=== PATIENT | male | born 1955 | race Caucasian/White ===

== ENCOUNTER → 2022-12-03 | Outpatient (CLI) | payer MEDICARE ==
--- NOTE | 2022-12-03 15:31 | US ---
EXAMINATION TYPE: US venous doppler duplex LE RT DATE OF EXAM: 12/03/2022 3:25 PM COMPARISON: NONE CLINICAL INDICATION: Male, 67 years old with history of I80.9 PHLEBITIS AND THROMBOPHLEBITIS OF U S80 .01XA M25.571; Knee and ankle injury 1 week ago. Pain. No hx of DVT. Patient does not take blood thin ners. SIDE PERFORMED: Right TECHNIQUE: The lower extremity deep venous system is examined utilizing real time linear array sonog darlin with graded compression, doppler sonography and color-flow sonography. VESSELS IMAGED: Common Femoral Vein Deep Femoral Vein Greater Saphenous Vein * Femoral Vein Popliteal Vein Small Saphenous Vein * Proximal Calf Veins (* superficial vessels) Right Leg: No evidence of DVT. Anechoic fluid-appearing area seen within the right medial knee: 2.5 x 1.7 x 0.4 cm. IMPRESSION: No ultrasound evidence for acute DVT in the right lower extremity. Small thin-walled fluid collection noted towards end of study medial knee level, possibly resolving d eep subcutaneous hematoma.
== END | disposition home or self-care (01) ==
LOC: RADUSWWP 14:58
PROVIDERS: ATTEND Orthopaedic Surgery
DX: S80.01XA Contusion of right knee, initial encounter (principal); I80.9 Phlebitis and thrombophlebitis of unspecified site; S80.11XA Contusion of right lower leg, initial encounter; S90.01XA Contusion of right ankle, initial encounter

== ENCOUNTER → 2023-07-06 | Outpatient (CLI) | payer MEDICARE ==
--- NOTE | 2023-07-06 15:54 | P.SLEEP ---
History of Present Illness DATE: 07/06/2023 CONSULTATION/NEW PATIENT EVALUATION HISTORY OF PRESENT ILLNESS/SLEEP-WAKE EVALUATION: 67-year-old gentleman had been evaluated in the sleep center for possible obstructive sleep apnea hypopnea syndrome. SLEEP SCHEDULE: Usually sleep schedule from 11:30 PM to 6:30 AM on weekdays and from 12 AM until 8 AM on weekend. FALLING ASLEEP: No problems with falling asleep. DURING SLEEP: Patient snores and according to his has episodes of stop breathing during the sleep. Positive history of grinding teeth. Patient may wake up from sleep several times with restless leg symptoms and cramps in his legs. No history of hypnogogical hallucinations, sleep paralysis, or cataplexy. DURING THE DAY/WAKE STATE: In the morning patient wake up tired, has episodes of anxiety and sexual dysfunction. Kidder sleepiness scale is 6. Usually patient doesn't take naps. PAST MEDICAL HISTORY: Hypertension. PAST SURGICAL HISTORY: Bilateral cataract surgery, left knee arthroscopic surgery. MEDICATIONS: Amlodipine 5 mg once a day, lisinopril/hydrochlorothiazide 20-25 mg once a day. SOCIAL HISTORY: Negative for nicotine smoking, alcohol consumption occasional. FAMILY HISTORY: Stroke, cancer, during the sleep, mental illness. REVIEW OF SYSTEMS: Snoring, awakenings from sleep, cramps in the legs during the sleep. No fevers. No double vision. No recent chest pain. No shortness of breath. No abdominal pain. No bleeding episodes. No blood in urine. No seizure episodes. PHYSICAL EXAMINATION: GENERAL: A pleasant patient without any distress. VITAL SIGNS: BP 139/82 , HR 65 , RR 16 , weight 168.0 pounds, height 5 foot 10 inches, body mass index 24.1 . HEENT: PERRLA, EOMI. Evaluation of oropharynx showed tongue protrudes midline, low position of soft palate Mallampati 3. NECK: Supple. No JVD. Thyroid is not palpable. 15-3/4 inches in circumference. LUNGS: Clear to percussion and to auscultation. Good air exchange. No wheezing or rhonchi. HEART: S1, S2 regular. No murmurs, gallops or rubs. ABDOMEN: Soft and nontender. Bowel sounds are present. No organomegaly appreciated. EXTREMITIES: No clubbing or cyanosis. CARE SERVICES MANAGER: Awake, alert, and oriented x3. Cranial nerves 2 to 7 intact. There is no fasciculation or atrophy noted. No focal deficits observed. ASSESSMENT: 1. Snoring, witnessed episodes of stop breathing during the sleep, low position of soft palate Mallampati 3. Obstructive sleep apnea hypopnea syndrome. 2. Cramps in the lower legs, possibly periodic limb movements. 3. Restless leg symptoms. 4. Hypertension. 5 status post bilateral cataract surgery. 6 . Status post left knee arthroscopic surgery. PLAN: 1. Polysomnography for evaluation of patient's breathing during sleep and to check for possible periodic limb movements. 2. Following plan after reading sleep study 3. Preferable position during sleep on the side. 4. No driving if patient feels any sleepiness. Patient is aware of civil and criminal liability for unsafe driving. 5. Sleep hygiene with regular sleep time for at least 7.5-8 hours. 6. Watching weight. Thank you very much for referring this patient for consultation. Sincerely, Travis Wilhelm MD, PhD, FAASM. Diplomat of [place] [employer], Sleep Medicine Board by [place] [employer] [employer] Care Director [facility] [place] [facility] - Sleep Note Sleep Note: Temperature: Pulse Rate: Respiratory Rate: Blood Pressure: SpO2: Height: Weight: BMI: Neck Circumference:
== END ==
LOC: 3 N SLEEP 15:15
PROVIDERS: ATTEND Internal Medicine
DX: G47.33 Obstructive sleep apnea (adult) (pediatric) (principal); I10 Essential (primary) hypertension; G25.81 Restless legs syndrome; G47.62 Sleep related leg cramps; Z98.41 Cataract extraction status, right eye; Z98.42 Cataract extraction status, left eye; Z96.652 Presence of left artificial knee joint; Z79.899 Other long term (current) drug therapy
CPT/HCPCS: 99211

== ENCOUNTER → 2024-06-18 | Outpatient (CLI) | payer MEDICARE ==
--- NOTE | 2024-06-19 06:49 | CA ---
Transthoracic Echo Report Name: Hardik Lee Age: 68 Gender: M : 1955 Exam Date: 06/18/2024 18:05 Exam Location: [facility] Ht (in): 70 Wt (lb): 168 Ordering Physician: Tesfaye Urban DO Attending/Referring Phys: Tesfaye Urban DO Smelter Operator Raissa Rendon RDCS Procedure CPT: Indications: R60.0 CADEN LOWER EXT EDEMA Cardiac Hx: htn Technical Quality: Good Contrast 1: Total Dose (mL): Contrast 2: Total Dose (mL): MEASUREMENTS (Male / Female) Normal Values 2D ECHO LV Diastolic Diameter PLAX 4.4 cm 4.2 - 5.9 / 3.9 - 5.3 cm LV Systolic Diameter PLAX 3.1 cm IVS Diastolic Thickness 1.1 cm 0.6 - 1.0 / 0.6 - 0.9 cm LVPW Diastolic Thickness 1.0 cm 0.6 - 1.0 / 0.6 - 0.9 cm LV Relative Wall Thickness 0.5 RV Internal Dim ED PLAX 3.0 cm LA Systolic Diameter LX 3.3 cm 3.0 - 4.0 / 2.7 - 3.8 cm LV Diastolic Volume MOD 4C 87.3 cm??? LV Systolic Volume MOD 4C 34.0 cm??? LV Ejection Fraction MOD 4C 61.1 % LV Cardiac Index MOD 4C 1726.2 cm???/min???m??? LV Diastolic Length 4C 10.0 cm LV Systolic Length 4C 8.1 cm LV Diastolic Volume MOD 2C 83.3 cm??? LV Systolic Volume MOD 2C 33.9 cm??? LV Ejection Fraction MOD 2C 59.3 % LV Cardiac Index MOD 2C 1598.6 cm???/min???m??? LV Diastolic Length 2C 8.9 cm LV Systolic Length 2C 6.9 cm LA Volume 60.8 cm??? 18 - 58 / 22 - 52 cm??? LA Volume Index 31.2 cm???/m??? 16 - 28 cm???/m??? M-MODE Aortic Root Diameter MM 4.0 cm AV Cusp Separation MM 2.4 cm DOPPLER AV Peak Velocity 139.3 cm/s AV Peak Gradient 7.8 mmHg AV Mean Velocity 86.8 cm/s AV Mean Gradient 3.7 mmHg AV Velocity Time Integral 29.6 cm AI Peak Velocity 496.0 cm/s AI Peak Gradient 98.4 mmHg AI Pressure Half Time 994.5 ms LVOT Peak Velocity 113.3 cm/s LVOT Peak Gradient 5.1 mmHg LVOT Velocity Time Integral 19.9 cm MV Area PHT 2.1 cm??? Mitral E Point Velocity 66.6 cm/s Mitral A Point Velocity 79.1 cm/s Mitral E to A Ratio 0.8 MV Deceleration Time 353.0 ms TR Peak Velocity 221.1 cm/s TR Peak Gradient 19.5 mmHg Right Ventricular Systolic Press 24.5 mmHg FINDINGS Left Ventricle Left ventricular ejection fraction is estimated at 55-60 %. Left ventricular cavity size normal. Mildly increased septal wall thickness. Normal left ventricular wall motion. Right Ventricle Normal right ventricular size and function. Right ventricular systolic pressure within normal limits. Right Atrium Normal right atrial size. No right atrial thrombus or mass seen. Left Atrium Mildly increased left atrial volume. No left atrial thrombus or mass present. Mitral Valve Structurally normal mitral valve. No mitral stenosis, regurgitation or prolapse. Aortic Valve Bicuspid aortic valve. No aortic stenosis. Mild aortic regurgitation. Tricuspid Valve Structurally normal tricuspid valve. Mild tricuspid regurgitation. Pulmonic Valve Structurally normal pulmonic valve. Mild pulmonic regurgitation. Pericardium No pericardial or pleural effusion. Aorta Moderate aortic dilatation at the level of the sinuses of valsalva 40 mm. CONCLUSIONS Normal biventricular systolic function Mild left ventricular hypertrophy Poorly visualized aortic valve with mild aortic insufficiency Mildly dilated aorta Normal pulmonary artery systolic pressure No pericardial effusion Previewed by: Dr. Juan Méndez MD (Electronically Signed) Final Date: 19 June 2024 06:49
== END | disposition home or self-care (01) ==
LOC: RADECHMAIN 17:48
PROVIDERS: ATTEND Internal Medicine
DX: I10 Essential (primary) hypertension (principal); R60.0 Localized edema
CPT/HCPCS: 93306